=== PATIENT | female | born 1970 | race American Indian/Alaskan Native ===

== ENCOUNTER 2020-02-29 07:00 | Day surgery (SDC) | payer OTHER ==
[2020-02-29] MEDS ORDERED: SODIUM CHLORIDE 0.9% 1000 ML 1,000 ML IV SCH (07:30)
--- NOTE | 2020-02-29 08:15 | Anesthesia Consultation ---
Anesthesia Consult and Med Hx Date of service: 02/29/20 - Airway Anesthetic Teeth Evaluation: Poor ROM Head & Neck: Adequate Mental/Hyoid Distance: Adequate Mallampati Class: Class III Intubation Access Assessment: Possibly Difficult - Pulmonary Exam CTA: Yes - Cardiac Exam Cardiac Exam: RRR - Pre-Operative Health Status ASA Pre-Surgery Classification: ASA3 Proposed Anesthetic Plan: MAC - Pulmonary Hx Smoking: No Hx Respiratory Symptoms: No - Cardiovascular System Hx Hypertension: Yes Hx Heart Attack/AMI: Yes (took metoprolol this morning) Hx Percutaneous Transluminal Coronary Angioplasty (PTCA): No Hx Cardia Arrhythmia: No Hx Peripheral Vascular Disease: Yes (right carotid a. stenosis. Off ASA/Plavix x7days) - Central Nervous System CVA: Yes (x2, most recent 2011; no deficits) - Gastrointestinal Hx Gastroesophageal Reflux Disease: No - Endocrine Hx Renal Disease: Yes (CKD 3) Hx Liver Disease: No Hx Insulin Dependent Diabetes: Yes Hx Thyroid Disease: No - Other Systems Hx Obesity: Yes (BMI 38) - Additional Comments Anesthesia Medical History Comments: Cardiology clearance note on chart.
--- NOTE | 2020-02-29 08:16 | Anesthesia Day of Surgery ---
Anesthesia Day of Surgery - Day of Surgery Patient Examined: Yes Patient H&P Reviewed: Yes Patient is NPO: Yes Beta Blockers: Yes (metoprolol this morning) Cardiac Clearance: Yes
[2020-02-29] MEDS ORDERED: LIDOCAINE MPF (2%) 20 MG/1 ML VIAL 5 ML ONE (08:30)
[2020-02-29] MEDS ORDERED: DEXTROSE 50% IN WATER (25GM) 50 ML SYRINGE IV SCH (09:00)
[2020-02-29] MEDS ORDERED: DEXTROSE 50% IN WATER (25GM) 50 ML SYRINGE IV ONE (09:02)
[2020-02-29] MEDS ORDERED: propofoL 200 MG/20 ML VIAL IV ONE ×2 (09:18)
--- NOTE | 2020-02-29 10:08 | Procedure Note ---
Date of procedure: 02/29/20 Pre-op diagnosis: F/H/O Colon Polyps/ F/H/O Cancer/Hematochezia Post-op diagnosis: other (Tree Cecal Polyps (removed by hot snare excision and fulgurated and removed by using a Mathis Net/ Solitary,Proximal Colon Diverticuli/ Mild to Moderate Internal Hemorrhoid and Moderate External Hemorrhoid) Procedure: Colonoscopy with Hot Snare Polypectomy and Fulguration of the Polyp using tip of the Polypectomy Snare and use of a Mathis Net Anesthesia: MAC Surgeon: RICK FORTE Estimated blood loss: minimal Pathology: list Specimen disposition: to lab Condition: stable Disposition: same day (Avoid aspirin and NSAID for 5 days; otherwise resume home medication. Treat with Anuso supp and follow up in 1 to 2 weeks ([phone]).)
--- NOTE | 2020-02-29 11:36 | Post Anesthesia Evaluation ---
- Post Anesthesia Evaluation Patient Participated: Yes Airway Patent: Yes Stable Respiratory Function: Yes Nausea/Vomiting: No Temp > 96.8F: Yes Pain Manageable: Yes Adequeate Hydration: Yes Anesthesia Complications: No
--- NOTE | 2020-02-29 12:20 | Operative Report ---
PROCEDURE: Colonoscopy with snare polypectomy and the use of a Mathis net to retrieve a polyp as well as reintroduction of the scope. INDICATIONS: This is a 49-year-old -Ang[place] female with an underlying history of diabetes mellitus, hypertension, coronary artery disease with a strong family history of cancer. Grandfather had some form of cancer. Aunt had breast cancer. Sister had a large colon polyp removed and parents also had a history of colon polyps. Colonoscopy was done because she had complained of some hematochezia. DESCRIPTION OF PROCEDURE: Initial rectal exam showed presence of a moderate external hemorrhoid. The scope was then introduced and passed to the cecum where there was a large, probably 1.5-1.8 cm polyp noted that was removed by snare excision and had to be retrieved with a Mathis Net with reintroduction of the scope. There were 2 additional smaller polyps, one was fulgurated and the other was also removed by snare excision. The area there was still a little bit of polyp was fulgurated using the tip of the polypectomy snare. There was a solitary diverticula noted in the proximal colon. The remaining part of the proximal colon, transverse colon, descending colon and sigmoid showed normal mucosa. There were no other additional polyps noted in the remaining more distal portion of the colon. The rectum showed some mild to moderate internal hemorrhoid, most of the bleeding may have been from the external hemorrhoids and no banding was done. There was minimal to no bleeding associated with the polypectomy. ASSESSMENT: History of gastrointestinal bleeding secondary to moderate external hemorrhoid and [id number] internal hemorrhoid, not significant enough for banding. Three colon polyps, 1 being large, 2 being smaller all in the cecum that were removed and fulgurated and the large polyp was retrieved using a Mathis net with reintroduction of the scope back to the cecum and a solitary proximal colon diverticula. PLAN: Plan is to avoid aspirin and aspirin-related products and anticoagulants for the next 5 days. Otherwise, resume home medication after a week. The patient may be encouraged to take more fiber supplements. Followup in the office in 1-2 weeks' time. The patient may require repeat colonoscopy in 6 months to a year because of the large size of the polyps that were noted in the cecum to make sure that they were removed in their entirety. Thank you for the kind referral. The procedure was done in the GI lab with assistance of the GI lab team, which included ESTELITA Rasheed, ana maria Victor and with assistance of anesthesia. JOB# [id number] HEIDY/MICHELLE
[2020-02-29 12:42] VITALS: BP 126/65
== END 2020-02-29 11:25 | disposition home or self-care (01) ==
LOC: GIO 07:00
DX: K92.1 Melena (principal); K63.5 Polyp of colon; K64.8 Other hemorrhoids; K57.30 Diverticulosis of large intestine without perforation or abscess without bleeding; I12.9 Hypertensive chronic kidney disease with stage 1 through stage 4 chronic kidney disease, or unspecified chronic kidney disease; E11.22 Type 2 diabetes mellitus with diabetic chronic kidney disease; N18.3 Chronic kidney disease, stage 3 (moderate); E11.51 Type 2 diabetes mellitus with diabetic peripheral angiopathy without gangrene; E66.9 Obesity, unspecified; Z79.899 Other long term (current) drug therapy; Z80.0 Family history of malignant neoplasm of digestive organs; Z80.3 Family history of malignant neoplasm of breast; Z86.010 Personal history of colon polyps; Z68.38 Body mass index [BMI] 38.0-38.9, adult; Z88.8 Allergy status to other drugs, medicaments and biological substances; Z86.73 Personal history of transient ischemic attack (TIA), and cerebral infarction without residual deficits
CPT/HCPCS: 45385; 45388; 81025; 82962; 88305; J2704; J7030

== ENCOUNTER 2020-05-27 08:59 | Day surgery (SDC) | payer OTHER ==
[2020-05-27] MEDS ORDERED: SODIUM CHLORIDE 0.9% 1000 ML 1,000 ML ONE (09:21)
--- NOTE | 2020-05-27 09:35 | Anesthesia Consultation ---
Anesthesia Consult and Med Hx Date of service: 05/27/20 - Airway Anesthetic Teeth Evaluation: Good (some missing teeth) ROM Head & Neck: Adequate Mental/Hyoid Distance: Adequate Mallampati Class: Class II Intubation Access Assessment: Probably Good - Pre-Operative Health Status ASA Pre-Surgery Classification: ASA3 Proposed Anesthetic Plan: MAC - Pulmonary Hx Smoking: No Hx Respiratory Symptoms: No - Cardiovascular System Hx Hypertension: Yes (took metoprolol this morning) Hx Coronary Artery Disease: Yes (Cardiac clearance on the chart) Hx Heart Attack/AMI: Yes (2009) Hx Percutaneous Transluminal Coronary Angioplasty (PTCA): No Hx Cardia Arrhythmia: No Hx Peripheral Vascular Disease: Yes (right carotid a. stenosis. Off ASA/Plavix x7days) - Central Nervous System CVA: Yes (x2, most recent 2011; no deficits) Hx Back Pain: Yes (rhematoid arthritis) - Gastrointestinal Hx Gastroesophageal Reflux Disease: No - Endocrine Hx Renal Disease: Yes (CKD 3) Hx Liver Disease: No Hx Insulin Dependent Diabetes: Yes Hx Thyroid Disease: No - Other Systems Hx Obesity: Yes (BMI 38)
--- NOTE | 2020-05-27 09:35 | Anesthesia Day of Surgery ---
Anesthesia Day of Surgery - Day of Surgery Patient Examined: Yes Patient H&P Reviewed: Yes Patient is NPO: Yes Beta Blockers: Yes Pulmonary Clearance: Yes
[2020-05-27] MEDS ORDERED: SODIUM CHLORIDE 0.9% 1000 ML 1,000 ML IV SCH (10:00)
[2020-05-27] MEDS ORDERED: propofoL 200 MG/20 ML VIAL IV ONE ×2 (10:17→10:25)
[2020-05-27] MEDS ORDERED: LIDOCAINE MPF (2%) 20 MG/1 ML VIAL 5 ML ONE (10:17)
--- NOTE | 2020-05-27 11:10 | Procedure Note ---
Date of procedure: 05/27/20 Pre-op diagnosis: Large Cecal Polyp with Dysplasia removed in a 'piece meal' fashion Post-op diagnosis: other (Large,Flat Cecal Polyp (snare-excised perez 'piece meal' fashion and marked with 3 cc of [place] Ink Injection)/ Rectal Polyps (removed by snare polypectomy and cold biopsy)/ Minor,Left colon Diverticuli/ Minor,Internal Hemorrhoids) Procedure: Colonoscopy with Hot Snare Polypectomy and use of Mathis Net and cold Biopsy and 3 cc of [place] Ink Injection ( in the cecum) Anesthesia: MAC Surgeon: RICK FORTE Estimated blood loss: minimal Pathology: list Specimen disposition: to lab
--- NOTE | 2020-05-27 12:24 | Operative Report ---
PROCEDURES: Colonoscopy with hot snare polypectomy, cold biopsy and Mathis Net used and also the use of [place] ink injection of 3 mL. INDICATIONS: This is a 50-year-old -Russian female with an underlying history of diabetes, hypertension, TIA, family history of cancer, who had a colonoscopy done earlier this year that showed presence of a large colon polyp that had to be removed in a piecemeal fashion from the cecum and came back, which is showing dysplasia, repeat colonoscopy was done to make sure whether the remaining part of the polyp could be removed. DESCRIPTION OF PROCEDURE: Procedure was done after getting informed consent with MAC anesthesia. Initial rectal exam was unremarkable. Instrument was passed through the rectum onto the cecum, which was again identified with ileocecal valve and the appendiceal orifice. There was a large flat polyp covering a large area of the cecum that was noted. Part of it was removed in a piecemeal fashion again and retrieved using a Mathis Net at the end of the procedure and the area was also marked with 3 mL of [place] ink as the patient is likely to be referred to a colorectal surgeon for possible surgery. The remaining part of the proximal colon, which was the more distal part of the cecum and the ascending colon as well as the transverse colon showed normal mucosa. In the left colon, there were 1 or 2 few minor diverticula noted. In the rectum, there was another 9-10 mm polyp that was removed by snare polypectomy, hot snare polypectomy and retrieved as well as a smaller polyp that was biopsied. The rectum showed minor internal hemorrhoid on the retroverted view. ASSESSMENT: Large cecal polyp again removed in piecemeal fashion. Possibly, the patient is to be referred to a colorectal surgeon. Minor left colon diverticula and rectal polyps. Minor internal hemorrhoid. There were minor left colon diverticula. There was minimal bleeding associated with the procedure. No complications associated with the procedure. The patient will be asked to avoid aspirin and aspirin-related products for the next few days. Resume home medication, encourage fiber supplements and will also be referred to colorectal surgeon for possible removal of the large cecal polyp that was flat and had shown changes or dysplasia. Procedure was done in the GI lab with assistance of the GI lab team, which included RNNicky as well as Alfa zhao and with assistance of anesthesia. JOB# [id number] KJ/NTS
[2020-05-27 12:50] VITALS: BP 142/72
--- NOTE | 2020-05-27 14:05 | Post Anesthesia Evaluation ---
- Post Anesthesia Evaluation Patient Participated: Yes Airway Patent: Yes Stable Respiratory Function: Yes Nausea/Vomiting: No Temp > 96.8F: Yes Pain Manageable: Yes Adequeate Hydration: Yes Anesthesia Complications: No Block Receding Appropriately: Not Applicable Patient on Ventilator: No
== END 2020-05-27 09:00 | disposition home or self-care (01) ==
LOC: GIO 08:59
DX: Z12.11 Encounter for screening for malignant neoplasm of colon (principal); D12.0 Benign neoplasm of cecum; K62.1 Rectal polyp; K62.89 Other specified diseases of anus and rectum; K64.8 Other hemorrhoids; I25.10 Atherosclerotic heart disease of native coronary artery without angina pectoris; E11.51 Type 2 diabetes mellitus with diabetic peripheral angiopathy without gangrene; E66.9 Obesity, unspecified; K21.9 Gastro-esophageal reflux disease without esophagitis; I12.9 Hypertensive chronic kidney disease with stage 1 through stage 4 chronic kidney disease, or unspecified chronic kidney disease; E11.22 Type 2 diabetes mellitus with diabetic chronic kidney disease; N18.30 Chronic kidney disease, stage 3 unspecified; M06.9 Rheumatoid arthritis, unspecified; Z98.890 Other specified postprocedural states; Z88.8 Allergy status to other drugs, medicaments and biological substances; Z79.899 Other long term (current) drug therapy; Z98.49 Cataract extraction status, unspecified eye; Z68.36 Body mass index [BMI] 36.0-36.9, adult; K57.30 Diverticulosis of large intestine without perforation or abscess without bleeding; Z86.73 Personal history of transient ischemic attack (TIA), and cerebral infarction without residual deficits
CPT/HCPCS: 45380; 45381; 45385; 82962; 88305; J2704; J7030

== ENCOUNTER 2021-03-20 07:54 | Day surgery (SDC) | payer OTHER ==
[~2021-03-20 07:54] MED LIST: SODIUM CHLORIDE 0.9% 1000 ML 1,000 ML IV SCH
--- NOTE | 2021-03-20 09:45 | Anesthesia Consultation ---
Anesthesia Consult and Med Hx Date of service: 03/20/21 - Airway Anesthetic Teeth Evaluation: Good, Caps ROM Head & Neck: Adequate Mental/Hyoid Distance: Adequate Mallampati Class: Class I Intubation Access Assessment: Good - Pulmonary Exam CTA: Yes - Pre-Operative Health Status ASA Pre-Surgery Classification: ASA3 Proposed Anesthetic Plan: MAC - Pulmonary Hx Smoking: No Hx Respiratory Symptoms: No - Cardiovascular System Hx Hypertension: Yes (took metoprolol this morning) Hx Coronary Artery Disease: Yes (Cardiac clearance on the chart) Hx Heart Attack/AMI: Yes (2009) Hx Percutaneous Transluminal Coronary Angioplasty (PTCA): No Hx Cardia Arrhythmia: No Hx Peripheral Vascular Disease: Yes (right carotid a. stenosis. Off ASA/Plavix x7days) - Central Nervous System CVA: Yes (x2, most recent 2011; no deficits) Hx Back Pain: Yes (rhematoid arthritis) - Gastrointestinal Hx Gastroesophageal Reflux Disease: No - Endocrine Hx Renal Disease: Yes (CKD 3) Hx Liver Disease: No Hx Insulin Dependent Diabetes: Yes Hx Thyroid Disease: No - Other Systems Hx Alcohol Use: No Hx Cancer: No Hx Obesity: Yes (BMI 38)
--- NOTE | 2021-03-20 09:46 | Anesthesia Day of Surgery ---
Anesthesia Day of Surgery - Day of Surgery Patient Examined: Yes Patient H&P Reviewed: Yes Patient is NPO: Yes Beta Blockers: No Cardiac Clearance: No Pulmonary Clearance: No Mauro's Test: N/A
[2021-03-20] MEDS ORDERED: ONDANSETRON 4 MG/2 ML INJ ONE (09:49)
[2021-03-20] MEDS ORDERED: fentaNYL 100 MCG/2 ML INJ ONE (09:49)
[2021-03-20] MEDS ORDERED: LIDOCAINE MPF (2%) 20 MG/1 ML VIAL 5 ML ONE (09:49)
[2021-03-20] MEDS ORDERED: propofoL 200 MG/20 ML VIAL IV ONE ×2 (09:50→09:58)
--- NOTE | 2021-03-20 10:36 | Procedure Note ---
Date of procedure: 03/20/21 Pre-op diagnosis: Dyspepsia and Nausea and Colon Polyp with High Grade Dysplasia Post-op diagnosis: other (Mild to Moderate Erosive Esophagitis/ Gastric Polyp/ Gastriti and Gastric Erosion/ H/O Partial colon Resection / No Additional Colon Polyps/ No diverticular disease/ Minor, Internal Hemorrhoids) Procedure: EGd with biopsy/ colonoscopy [place]est[place]: [facility] [place]geon: RICK FORTE Estimated blood loss: minimal Pathology: list Specimen disposition: to lab Condition: stable Disposition: same day (Treat with PPI and prn Zofran. Avoid aspirin and NSAID for 5 days, otherwise resume home medciation and follow up in 1 to 2 weeks ([phone]).)
--- NOTE | 2021-03-20 10:40 | Operative Report ---
DATE OF SURGERY: 03/20/2021 PROCEDURE: Colonoscopy. INDICATIONS: The patient is a 50-year-old -Vietnamese female, who has a prior history of colon polyp with high-grade dysplasia. She was sent to a colorectal surgeon for partial colon resection, which she has had over several months back. Repeat colonoscopy was done to make sure there was not any recurrence of any polyps. DESCRIPTION OF PROCEDURE: Procedure was done after getting informed consent. The initial rectal examination was unremarkable. The instrument was passed through the rectum onto the proximal colon at the surgical site, which appeared to be good. Photodocumentation was obtained. The surgical site and the part of the colon distal to it showed normal mucosa without any additional polyps. The transverse colon, descending colon and sigmoid likewise showed normal mucosa. There was some minor internal hemorrhoid noted in the rectum. There was no bleeding associated with the procedure. No complications associated with the procedure. ASSESSMENT: History of colon polyp with high-grade dysplasia. History of partial colon resection. No diverticula noted. Minor internal hemorrhoid. PLAN: To treat the patient with proton pump inhibitor and Zofran because of the EGD findings of erosive esophagitis, gastric erosion and gastritis. Have the patient avoid aspirin and aspirin-related products for the next few days and follow up in the office in 1-2 weeks' time. Procedure was done in the GI lab with assistance of the GI lab team, which included the GI nurse, the trim technician and with assistance of anesthesia. TID: [id number] RECEIPT: [id number] HEIDY/EMMA
--- NOTE | 2021-03-20 13:07 | Operative Report ---
DATE OF SURGERY: 03/20/2021 PROCEDURE PERFORMED: EGD with biopsy. INDICATIONS: This is a 50-year-old -Hungarian female who has been complaining of dyspeptic symptoms. She has also had a history of a colon polyp with high-grade dysplasia for which she has had surgery done with partial colon resection. EGD was done to make sure there was not any significant upper GI pathology present that would account for her dyspepsia. DESCRIPTION OF PROCEDURE: Procedure was done after getting informed consent with MAC anesthesia. The instrument was passed through the hypopharynx into the esophagus, which showed [id number] distal erosive esophagitis. Photodocumentation and biopsy was done from the distal esophagus to assess for the severity of the erosive esophagitis. The stomach showed gastric polyps, possibly benign in the proximal stomach. Photodocumentation and biopsy was obtained. There was some gastric erosion and gastritis noted in the distal stomach. Biopsy was also done from that area to assess for any associated H. pylori. The pylorus was patent. The duodenum in the first and second portion appeared normal. There was minimal bleeding associated with the procedure. ASSESSMENT: Dyspepsia, nausea, and [id number] erosive esophagitis, gastritis, gastric erosion and gastric polyps in the proximal stomach. PLAN: To have the patient avoid aspirin and aspirin-related products for the next few days. Treat the patient with PPI and also p.r.n. dose of Zofran. Colonoscopy will be done for further assessment for any recurrence of any polyps and we will have the patient follow up in the office in 1-2 weeks' time. Procedure was done in the GI lab with assistance of the GI lab team, which included the GI nurse, cath lab radiology technician and with assistance of anesthesia. TID: [id number] RECEIPT: [id number] HEIDY/MAX/DORIS
[2021-03-20 18:44] VITALS: BP 123/54
== END 2021-03-20 07:55 | disposition home or self-care (01) ==
LOC: GIO 07:54
DX: Z12.11 Encounter for screening for malignant neoplasm of colon (principal); R10.13 Epigastric pain; K21.00 Gastro-esophageal reflux disease with esophagitis, without bleeding; K29.50 Unspecified chronic gastritis without bleeding; K31.89 Other diseases of stomach and duodenum; K63.89 Other specified diseases of intestine; I25.10 Atherosclerotic heart disease of native coronary artery without angina pectoris; I12.9 Hypertensive chronic kidney disease with stage 1 through stage 4 chronic kidney disease, or unspecified chronic kidney disease; E11.9 Type 2 diabetes mellitus without complications; N18.30 Chronic kidney disease, stage 3 unspecified; E66.9 Obesity, unspecified; M06.9 Rheumatoid arthritis, unspecified; Z86.73 Personal history of transient ischemic attack (TIA), and cerebral infarction without residual deficits; Z86.010 Personal history of colon polyps; Z79.899 Other long term (current) drug therapy; Z98.890 Other specified postprocedural states; Z88.8 Allergy status to other drugs, medicaments and biological substances; Z68.36 Body mass index [BMI] 36.0-36.9, adult
CPT/HCPCS: 43239; 45378; 82962; 88305; 88342; J2405; J2704; J3010; J7030

== ENCOUNTER 2022-04-09 09:06 | Day surgery (SDC) | payer MEDICAID, OTHER ==
--- NOTE | 2022-04-09 10:16 | Anesthesia Consultation ---
Anesthesia Consult and Med Hx Date of service: 04/09/22 - Airway Anesthetic Teeth Evaluation: Good ROM Head & Neck: Adequate Mental/Hyoid Distance: Adequate Mallampati Class: Class III Intubation Access Assessment: Possibly Difficult - Pre-Operative Health Status ASA Pre-Surgery Classification: ASA3 Proposed Anesthetic Plan: MAC - Pulmonary Hx Smoking: No Hx Respiratory Symptoms: No - Cardiovascular System Hx Hypertension: Yes (took metoprolol this morning) Hx Coronary Artery Disease: Yes Hx Heart Attack/AMI: Yes (2009) Hx Percutaneous Transluminal Coronary Angioplasty (PTCA): No - Central Nervous System Hx Neuromuscular Disorder: No (fibromyalgia) CVA: Yes (2011, no deficits; plavix held since 04/03/22) - Endocrine Hx Renal Disease: Yes (CKD) Hx Liver Disease: No Hx Insulin Dependent Diabetes: Yes (w/ insulin pump) Hx Thyroid Disease: No - Additional Comments Anesthesia Medical History Comments: No hx anesthetic complications.
--- NOTE | 2022-04-09 10:16 | Anesthesia Day of Surgery ---
Anesthesia Day of Surgery - Day of Surgery Patient Examined: Yes Patient H&P Reviewed: Yes Patient is NPO: Yes Beta Blockers: Yes
[2022-04-09] MEDS ORDERED: propofoL 200 MG/20 ML VIAL IV ONE ×2 (10:48→11:06)
--- NOTE | 2022-04-09 11:22 | Procedure Note ---
Date of procedure: 04/09/22 Pre-op diagnosis: H/O Proximal colon Polyp/ H/O Partial. ProximalColon Resection Post-op diagnosis: other (No Colon Polyp/ H/O Partial Proximal Colon Resection/ No Diverticular Disease/ NMinor,Internal Hemorrhoids) Procedure: Colonoscopy Anesthesia: MAC Surgeon: RICK FORTE Estimated blood loss: none Pathology: none Condition: stable Disposition: same day (Resume previous medication and F/Uin 1 to 2 weeks ([phone]).)
--- NOTE | 2022-04-09 11:25 | Operative Report ---
DATE OF SURGERY: 04/09/2022 PROCEDURE: Colonoscopy. INDICATIONS: This is a 52-year-old -[place] female with an underlying history of coronary artery disease and diabetes mellitus, who had a large colon polyp in the proximal colon, for which she had partial resection of the proximal colon. Colonoscopy was done to make sure there was not any recurrence of any polyps. DESCRIPTION OF PROCEDURE: Procedure was done after getting informed consent. With MAC anesthesia, initial rectal exam was unremarkable. The instrument was passed through the rectum onto the proximal colon. Surgical resection was noted. The visualization was fair to good. There was no additional polyp noted in the proximal transverse, descending, sigmoid or rectum. There is no diverticular disease noted and minor internal hemorrhoids with no bleeding associated with the procedure. ASSESSMENT: History of proximal colon polyp. No colon polyps noted. No diverticula. Minor internal hemorrhoid. PLAN: To resume previous medication and to follow up in the office in 1-2 weeks' time. Procedure was done in the GI lab with assistance of the GI lab team, which included the GI nurse, the biomedical equipment technician and with assistance of anesthesia. TID: [id number] RECEIPT: [id number] HEIDY/ADI
[2022-04-09] MEDS ORDERED: hydrALAZINE 20 MG/1 ML INJ IV PRN (11:52)
[2022-04-09 16:23] VITALS: BP 150/85
== END 2022-04-09 09:07 | disposition home or self-care (01) ==
LOC: GIO 09:06
DX: Z12.11 Encounter for screening for malignant neoplasm of colon (principal); K64.8 Other hemorrhoids; I25.10 Atherosclerotic heart disease of native coronary artery without angina pectoris; K21.9 Gastro-esophageal reflux disease without esophagitis; I12.9 Hypertensive chronic kidney disease with stage 1 through stage 4 chronic kidney disease, or unspecified chronic kidney disease; E11.22 Type 2 diabetes mellitus with diabetic chronic kidney disease; N18.9 Chronic kidney disease, unspecified; M06.9 Rheumatoid arthritis, unspecified; Z98.890 Other specified postprocedural states; Z86.010 Personal history of colon polyps; Z79.899 Other long term (current) drug therapy; Z88.8 Allergy status to other drugs, medicaments and biological substances; Z98.49 Cataract extraction status, unspecified eye; Z86.73 Personal history of transient ischemic attack (TIA), and cerebral infarction without residual deficits
CPT/HCPCS: 45378; 82962; J0360; J2704